=== PATIENT | male | born 1980 | race Caucasian/White ===

== ENCOUNTER 2019-07-29 07:44 | Emergency (ER) | payer OTHER ==
[~2019-07-29] VITALS: Ht 170.2 cm; Wt 79.4 kg
[~2019-07-29 07:44] MED LIST: BACLOFEN 10MG T10 M1; HYDROCODON-ACE1 EACH; IBUPROFEN 200200 M1; NORCO 5-325 TA1 EACH PO
[2019-07-29 07:52] VITALS: BP 128/73
[2019-07-29] MEDS ORDERED: NEURONTIN100 MG PO (07:55)
[2019-07-29] MEDS ORDERED: BUSPAR30 MG PO (07:55)
[2019-07-29] MEDS ORDERED: NORCO 5-325 TA1 EAC1 PO (08:35)
[2019-07-29] MEDS ORDERED: MOBIC15 MG PO (08:35)
[2019-07-29] MEDS ORDERED: CYCLOBENZAPRINE5 MG PO (08:35)
== END 2019-07-29 08:45 | disposition home or self-care (01) ==
LOC: ER 07:44
DX: S29.012A Strain of muscle and tendon of back wall of thorax, initial encounter (principal); F17.210 Nicotine dependence, cigarettes, uncomplicated; Z88.5 Allergy status to narcotic agent; X50.9XXA Other and unspecified overexertion or strenuous movements or postures, initial encounter; Y93.89 Activity, other specified; Y92.89 Other specified places as the place of occurrence of the external cause; Y99.0 Civilian activity done for income or pay